=== PATIENT | female | born 1995 | race Hispanic/Latino ===

== ENCOUNTER 2020-12-26 15:03 | Outpatient (CLI) | payer BC | END 2020-12-26 15:04 | disposition home or self-care (01) | LOC: NAV LABSP 15:03 | PROVIDERS: ATTEND Family Medicine | DX: Z32.01 Encounter for pregnancy test, result positive (principal) | CPT/HCPCS: 36415; 84702 ==

== ENCOUNTER 2020-12-28 08:02 | Outpatient (CLI) | payer BC | END 2020-12-28 08:03 | disposition home or self-care (01) | LOC: NAV ERS 08:02 → NAV LAB 08:03 | PROVIDERS: ATTEND Family Medicine | DX: Z32.01 Encounter for pregnancy test, result positive (principal) | CPT/HCPCS: 36415; 84702 ==

== ENCOUNTER 2021-05-13 17:26 | Outpatient (CLI) | payer BC | END 2021-05-13 17:27 | disposition home or self-care (01) | LOC: NAV RAD 17:26 | PROVIDERS: ATTEND Family Medicine | DX: J40 Bronchitis, not specified as acute or chronic (principal) | CPT/HCPCS: 71046 ==

== ENCOUNTER 2023-03-05 09:31 | Outpatient (CLI) | payer BC ==
[2023-03-06 13:44] LABS: Progesterone 26.2 ng/mL
== END 2023-03-05 09:32 | disposition home or self-care (01) ==
LOC: NAV LABSP 09:31
PROVIDERS: ATTEND Family Medicine
DX: Z32.01 Encounter for pregnancy test, result positive (principal)
CPT/HCPCS: 36415; 82670; 84144; 84702